=== PATIENT | female | born 1950 | race Caucasian/White ===

== ENCOUNTER 2021-10-08 03:52 | Inpatient (IN) ==
[2021-10-08 04:46] LABS: Hematocrit 38 % (35-47); Hemoglobin 12.4 g/dL (12.0-16.0); Mean Corpuscular HGB Conc 33 g/dL (31-36); Mean Corpuscular Hemoglobin 31 pg (27-31); Mean Corpuscular Volume 93 fL (80-97); Platelet Count 608 10^3/uL (150-450); Red Blood Count 4.05 10^6 /uL (3.70-4.87); Red Cell Distribution Width 15 % (10-15); White Blood Count 25.3 10^3/uL (3.5-10.8)
[2021-10-08] MEDS ORDERED: Cefepime 2 GM in Dextrose 2 GM/50 ML BAG IV ONE (04:53)
[2021-10-08] MEDS ORDERED: Vancomycin 1,250 MG in NS 0.9% 250 ml 250 ML IVPB ONE (04:53)
[2021-10-08 05:06] LABS: ALT 93 U/L (7-52); AST 59 U/L (13-39); Activated Partial Thrombo Time 29.7 seconds (26.0-38.0); Albumin 2.9 g/dL (3.2-5.2); Albumin/Globulin Ratio 0.8 (1-3); Alkaline Phosphatase 137 U/L (35-149); Anion Gap 8 mmol/L (2-11); Blood Urea Nitrogen 14 mg/dL (6-24); CO2 Carbon Dioxide 32 mmol/L (22-32); Calcium 8.7 mg/dL (8.6-10.3); Chloride 95 mmol/L (101-111); Creatine Kinase 47 U/L (10-223); Globulin 3.8 g/dL (2-4); Glucose 201 mg/dL (70-100); INR 1.49 (0.86-1.15); Potassium 4.1 mmol/L (3.5-5.0); Sodium 135 mmol/L (135-145); Total Protein 6.7 g/dL (6.4-8.9); eGFR CKD-EPI 84.8 (>60)
[2021-10-08 05:10] LABS: Troponin I 0.08 ng/mL (<0.03)
[2021-10-08 05:27] LABS: ABS Basophils 0.1 10^3/ul (0-0.2); ABS Eosinophils 0.1 10^3/ul (0-0.6); ABS Lymphocytes 1.2 10^3/ul (1.0-4.8); ABS Monocytes 1.5 10^3/ul (0-0.8); ABS Neutrophils 22.4 10^3/ul (1.5-7.7); Eosinophil % 0.3 %; Lymphocyte % 4.6 %
[2021-10-08 05:30] LABS: TSH Ultra Thyroid Stim Horm 1.29 mcIU/mL (0.34-5.60)
[2021-10-08 05:47] LABS: PCO2 Arterial 69 mmHg (35-45); PO2 Arterial 75 mmHg (80-100)
[2021-10-08] MEDS ORDERED: AZTREONAM 2 GM x ONCE IVPB ONE (06:00)
[2021-10-08 06:11] LABS: Urine Appearance Cloudy; Urine Bilirubin Negative (Negative); Urine Blood Negative (Negative); Urine Color Amber; Urine Glucose Negative (Negative); Urine Ketones Negative (Negative); Urine Nitrite Negative (Negative); Urine Protein 2+(100 mg/dL) (Negative); Urine Specific Gravity 1.025 (1.002-1.030); Urine Urobilinogen Positive (Negative)
[2021-10-08 06:18] LABS: Urine Bacteria 1+ (Absent); Urine Red Blood Cell 2+(6-10/hpf) (Absent); Urine Squamous Epithelial Cell Present (Absent); Urine White Blood Cell Trace(0-5/hpf) (Absent)
[2021-10-08] MEDS ORDERED: Furosemide 40 mg/4 ml IV VIAL IV SLOW PU ONE (07:12)
[2021-10-08] MEDS ORDERED: methylPREDNISolone 125 mg 2 ML VIAL IV ONE (07:28)
[2021-10-08] MEDS ORDERED: Albuterol HFA INHALER 8 gm MDI INH PRN (07:28)
[2021-10-08 07:45] LABS: PCO2 Arterial 64 mmHg (35-45); PO2 Arterial 76 mmHg (80-100)
[2021-10-08 07:58] LABS: Troponin I 0.09 ng/mL (<0.03)
[2021-10-08] MEDS ORDERED: methylPREDNISolone SOD 40 mg/ml 1 ml VIAL IV SCH (08:00)
[2021-10-08] MEDS: Pantoprazole VIAL 40 MG VIAL IV SCH (08:08)
[2021-10-08] MEDS ORDERED: Remdesivir 100 mg Vial 200 MG in NS 0.9% 250 ml 210 ML IV ONE (09:00)
[2021-10-08] MEDS: Azithromycin 500 mg/250 ml NS 500 MG/250 ML BAG IVPB SCH (09:45)
[2021-10-08 10:25] LABS: Troponin I 0.07 ng/mL (<0.03)
[2021-10-08 10:27] LABS: INR 1.48 (0.86-1.15)
[2021-10-08] MEDS: methylPREDNISolone SOD 40 mg/ml 1 ml VIAL IV SCH ×2 (12:30→20:20)
[2021-10-08] MEDS ORDERED: Iodixanol (CONTRAST) 320 MG/ML 100 ML SDV IV ONE (13:19)
[2021-10-08] MEDS ORDERED: Heparin 5000 UNITS/ML 1 mL VIAL SUBCUT SCH (14:00)
[2021-10-08] MEDS: Aztreonam 2 GM in NS 0.9% 100 ml BAG 100 ML IV SCH (15:34)
[2021-10-08] MEDS: Mometasone/Formoter 200/5 MDI INH SCH (19:34)
[2021-10-09] MEDS: Aztreonam 2 GM in NS 0.9% 100 ml BAG 100 ML IV SCH ×4 (00:29→23:45)
[2021-10-09] MEDS: methylPREDNISolone SOD 40 mg/ml 1 ml VIAL IV SCH ×3 (04:07→21:46)
[2021-10-09 04:22] LABS: Hematocrit 38 % (35-47); Hemoglobin 12.2 g/dL (12.0-16.0); Mean Corpuscular HGB Conc 32 g/dL (31-36); Mean Corpuscular Hemoglobin 30 pg (27-31); Mean Corpuscular Volume 94 fL (80-97); Platelet Count 653 10^3/uL (150-450); Red Blood Count 4.02 10^6 /uL (3.70-4.87); Red Cell Distribution Width 15 % (10-15); White Blood Count 20.3 10^3/uL (3.5-10.8)
[2021-10-09 04:33] LABS: ABS Lymphocytes 0.9 10^3/ul (1.0-4.8); ABS Monocytes 0.8 10^3/ul (0-0.8); ABS Neutrophils 18.6 10^3/ul (1.5-7.7); Lymphocyte % 4.5 %
[2021-10-09 04:35] LABS: INR 1.3 (0.86-1.15)
[2021-10-09 04:42] LABS: Albumin 2.9 g/dL (3.2-5.2); Albumin/Globulin Ratio 0.7 (1-3); Calcium 8.8 mg/dL (8.6-10.3); Globulin 3.9 g/dL (2-4); Potassium 4.7 mmol/L (3.5-5.0); Total Bilirubin 0.4 mg/dL (0.2-1.0); Total Protein 6.8 g/dL (6.4-8.9); eGFR CKD-EPI 80.9 (>60)
[2021-10-09 06:01] LABS: PO2 Arterial 119 mmHg (80-100)
[2021-10-09 06:09] LABS: PCO2 Arterial 93 mmHg (35-45)
[2021-10-09] MEDS: Mometasone/Formoter 200/5 MDI INH SCH ×2 (07:45→19:43)
[2021-10-09] MEDS: Pantoprazole VIAL 40 MG VIAL IV SCH (10:41)
[2021-10-09] MEDS: Azithromycin 500 mg/250 ml NS 500 MG/250 ML BAG IVPB SCH (10:52)
[2021-10-09 11:01] LABS: PCO2 Arterial 70 mmHg (35-45); PO2 Arterial 65 mmHg (80-100)
[2021-10-09] MEDS: Remdesivir 100 mg Vial 100 MG in NS 0.9% 250 ml 230 ML IV SCH (11:21)
[2021-10-09] MEDS: guaiFENesin/CODIENE 100mg/10mg 5 ML UDC PO PRN (13:12)
[2021-10-09] MEDS: Enoxaparin 40 MG/0.4 ML SYR SUBCUT SCH (16:15)
[2021-10-10] MEDS: guaiFENesin/CODIENE 100mg/10mg 5 ML UDC PO PRN ×3 (01:40→17:47)
[2021-10-10] MEDS ORDERED: Morphine 2 MG/ML SYRINGE IV PRN (01:55)
[2021-10-10] MEDS ORDERED: Furosemide 20 mg/2 ml IV VIAL IV ONE (01:57)
[2021-10-10] MEDS ORDERED: Furosemide 20 mg/2 ml IV VIAL ONE (02:10)
[2021-10-10 02:31] LABS: Urine Appearance Turbid; Urine Bilirubin Negative (Negative); Urine Blood 2+ (Negative); Urine Color Amber; Urine Glucose 3+(>=500 mg/dL) (Negative); Urine Ketones Negative (Negative); Urine Nitrite Negative (Negative); Urine Protein 1+(30 mg/dL) (Negative); Urine Specific Gravity 1.026 (1.002-1.030); Urine Urobilinogen Negative (Negative)
[2021-10-10 02:45] LABS: Urine Bacteria Absent (Absent); Urine Red Blood Cell 2+(6-10/hpf) (Absent); Urine White Blood Cell Trace(0-5/hpf) (Absent)
[2021-10-10] MEDS: methylPREDNISolone SOD 40 mg/ml 1 ml VIAL IV SCH ×3 (02:50→20:06)
[2021-10-10 05:32] LABS: Hematocrit 35 % (35-47); Hemoglobin 11.5 g/dL (12.0-16.0); Mean Corpuscular HGB Conc 32 g/dL (31-36); Mean Corpuscular Hemoglobin 31 pg (27-31); Mean Corpuscular Volume 95 fL (80-97); Mean Platelet Volume 8.2 fL (7.4-10.4); Platelet Count 607 10^3/uL (150-450); Red Blood Count 3.72 10^6 /uL (3.70-4.87); Red Cell Distribution Width 15 % (10-15)
[2021-10-10 05:36] LABS: ABS Basophils 0.1 10^3/ul (0-0.2); ABS Lymphocytes 0.5 10^3/ul (1.0-4.8); ABS Monocytes 0.5 10^3/ul (0-0.8); ABS Neutrophils 13.9 10^3/ul (1.5-7.7); INR 1.24 (0.86-1.15); Lymphocyte % 3.5 %
[2021-10-10 06:05] LABS: Blood Urea Nitrogen 25 mg/dL (6-24); CO2 Carbon Dioxide 34 mmol/L (22-32); Calcium 8.2 mg/dL (8.6-10.3); Chloride 94 mmol/L (101-111); Glucose 396 mg/dL (70-100); Sodium 134 mmol/L (135-145); eGFR CKD-EPI 80.9 (>60)
[2021-10-10 06:32] LABS: Anion Gap 6 mmol/L (2-11)
[2021-10-10] MEDS: Azithromycin 500 mg/250 ml NS 500 MG/250 ML BAG IVPB SCH (08:18)
[2021-10-10] MEDS: Aztreonam 2 GM in NS 0.9% 100 ml BAG 100 ML IV SCH ×3 (08:20→23:28)
[2021-10-10] MEDS: Pantoprazole VIAL 40 MG VIAL IV SCH (08:40)
[2021-10-10] MEDS: Mometasone/Formoter 200/5 MDI INH SCH ×2 (08:51→19:35)
[2021-10-10] MEDS: Remdesivir 100 mg Vial 100 MG in NS 0.9% 250 ml 230 ML IV SCH (11:27)
[2021-10-10] MEDS ORDERED: Dextrose 50% Syringe 50 ml 25 GM/50 ML SYRINGE IV PUSH PRN (12:50)
[2021-10-10] MEDS: Enoxaparin 40 MG/0.4 ML SYR SUBCUT SCH (16:37)
[2021-10-11] MEDS: guaiFENesin/CODIENE 100mg/10mg 5 ML UDC PO PRN (00:28)
[2021-10-11] MEDS: methylPREDNISolone SOD 40 mg/ml 1 ml VIAL IV SCH ×3 (02:38→20:34)
[2021-10-11 05:27] LABS: INR 1.27 (0.86-1.15)
[2021-10-11] MEDS: Azithromycin 500 mg/250 ml NS 500 MG/250 ML BAG IVPB SCH (07:46)
[2021-10-11] MEDS: Pantoprazole VIAL 40 MG VIAL IV SCH (09:11)
[2021-10-11] MEDS: Aztreonam 2 GM in NS 0.9% 100 ml BAG 100 ML IV SCH ×3 (09:30→23:42)
[2021-10-11] MEDS: Remdesivir 100 mg Vial 100 MG in NS 0.9% 250 ml 230 ML IV SCH (10:21)
[2021-10-11 10:50] LABS: ABS Lymphocytes 0.8 10^3/ul (1.0-4.8); ABS Monocytes 0.4 10^3/ul (0-0.8); ABS Neutrophils 14.8 10^3/ul (1.5-7.7); Hematocrit 39 % (35-47); Hemoglobin 12.5 g/dL (12.0-16.0); Lymphocyte % 4.8 %; Mean Corpuscular HGB Conc 32 g/dL (31-36); Mean Corpuscular Hemoglobin 31 pg (27-31); Mean Corpuscular Volume 94 fL (80-97); Mean Platelet Volume 7.7 fL (7.4-10.4); Platelet Count 692 10^3/uL (150-450); Red Blood Count 4.09 10^6 /uL (3.70-4.87); Red Cell Distribution Width 15 % (10-15)
[2021-10-11 11:14] LABS: Blood Urea Nitrogen 27 mg/dL (6-24); CO2 Carbon Dioxide 35 mmol/L (22-32); Calcium 8.5 mg/dL (8.6-10.3); Chloride 96 mmol/L (101-111); Glucose 303 mg/dL (70-100); Sodium 137 mmol/L (135-145); eGFR CKD-EPI 94.6 (>60)
[2021-10-11 11:23] LABS: Anion Gap 6 mmol/L (2-11)
[2021-10-11] MEDS: Mometasone/Formoter 200/5 MDI INH SCH ×2 (11:30→20:06)
[2021-10-11] MEDS: Enoxaparin 40 MG/0.4 ML SYR SUBCUT SCH (16:44)
[2021-10-12] MEDS: guaiFENesin/CODIENE 100mg/10mg 5 ML UDC PO PRN ×3 (01:17→23:25)
[2021-10-12] MEDS: methylPREDNISolone 125 mg 2 ML VIAL IV SCH ×3 (05:03→21:59)
[2021-10-12 06:43] LABS: ABS Lymphocytes 1.2 10^3/ul (1.0-4.8); ABS Monocytes 0.6 10^3/ul (0-0.8); ABS Neutrophils 14.7 10^3/ul (1.5-7.7); Hematocrit 39 % (35-47); Hemoglobin 12.9 g/dL (12.0-16.0); Lymphocyte % 7.1 %; Mean Corpuscular HGB Conc 33 g/dL (31-36); Mean Corpuscular Hemoglobin 31 pg (27-31); Mean Corpuscular Volume 94 fL (80-97); Mean Platelet Volume 7.6 fL (7.4-10.4); Platelet Count 861 10^3/uL (150-450); Red Blood Count 4.18 10^6 /uL (3.70-4.87); Red Cell Distribution Width 15 % (10-15); White Blood Count 16.5 10^3/uL (3.5-10.8)
[2021-10-12 06:48] LABS: INR 1.2 (0.86-1.15)
[2021-10-12 07:04] LABS: Calcium 8.7 mg/dL (8.6-10.3); Potassium 4.6 mmol/L (3.5-5.0); eGFR CKD-EPI 95.2 (>60)
[2021-10-12] MEDS: Pantoprazole VIAL 40 MG VIAL IV SCH (08:10)
[2021-10-12] MEDS: Aztreonam 2 GM in NS 0.9% 100 ml BAG 100 ML IV SCH ×3 (08:11→23:25)
[2021-10-12] MEDS: Mometasone/Formoter 200/5 MDI INH SCH ×2 (08:11→20:01)
[2021-10-12] MEDS: Remdesivir 100 mg Vial 100 MG in NS 0.9% 250 ml 230 ML IV SCH (11:01)
[2021-10-12] MEDS: Azithromycin 500 mg/250 ml NS 500 MG/250 ML BAG IVPB SCH (12:22)
[2021-10-12] MEDS: Enoxaparin 40 MG/0.4 ML SYR SUBCUT SCH (17:20)
[2021-10-12] MEDS ORDERED: Insulin GLARGINE 100 un/ml 10 ml VIAL SUBCUT SCH (22:00)
[2021-10-13 05:31] LABS: Hematocrit 40 % (35-47); Hemoglobin 13.1 g/dL (12.0-16.0); Mean Corpuscular HGB Conc 33 g/dL (31-36); Mean Corpuscular Hemoglobin 30 pg (27-31); Mean Corpuscular Volume 93 fL (80-97); Mean Platelet Volume 7.2 fL (7.4-10.4); Platelet Count 828 10^3/uL (150-450); Red Blood Count 4.32 10^6 /uL (3.70-4.87); Red Cell Distribution Width 15 % (10-15); White Blood Count 16.9 10^3/uL (3.5-10.8)
[2021-10-13 05:32] LABS: Venous Bicarbonate HCO3 35.4 mmol/L (24-28)
[2021-10-13] MEDS: methylPREDNISolone 125 mg 2 ML VIAL IV SCH ×2 (05:42→12:38)
[2021-10-13 05:43] LABS: INR 1.15 (0.86-1.15)
[2021-10-13 05:48] LABS: ABS Lymphocytes 0.7 10^3/ul (1.0-4.8); ABS Monocytes 0.5 10^3/ul (0-0.8); ABS Neutrophils 15.6 10^3/ul (1.5-7.7); Eosinophil % 0.1 %; Lymphocyte % 4.3 %
[2021-10-13 05:49] LABS: Calcium 8.4 mg/dL (8.6-10.3); Magnesium 2.3 mg/dL (1.9-2.7); Phosphorus 4.2 mg/dL (2.5-5.0); Potassium 4.5 mmol/L (3.5-5.0); eGFR CKD-EPI 95.6 (>60)
[2021-10-13] MEDS: Mometasone/Formoter 200/5 MDI INH SCH ×2 (07:40→19:41)
[2021-10-13] MEDS: guaiFENesin/CODIENE 100mg/10mg 5 ML UDC PO PRN (08:25)
[2021-10-13] MEDS: Azithromycin 500 mg/250 ml NS 500 MG/250 ML BAG IVPB SCH (08:27)
[2021-10-13] MEDS: Pantoprazole VIAL 40 MG VIAL IV SCH (08:28)
[2021-10-13] MEDS: Aztreonam 2 GM in NS 0.9% 100 ml BAG 100 ML IV SCH ×2 (10:16→16:57)
[2021-10-13] MEDS: Enoxaparin 40 MG/0.4 ML SYR SUBCUT SCH (16:58)
[2021-10-13] MEDS ORDERED: Insulin GLARGINE 100 un/ml 10 ml VIAL SUBCUT SCH (21:00)
[2021-10-13] MEDS: methylPREDNISolone SOD 40 mg/ml 1 ml VIAL IV SCH (21:42)
[2021-10-14] MEDS: Aztreonam 2 GM in NS 0.9% 100 ml BAG 100 ML IV SCH ×2 (00:23→09:30)
[2021-10-14 06:47] LABS: ABS Lymphocytes 0.7 10^3/ul (1.0-4.8); ABS Monocytes 0.5 10^3/ul (0-0.8); ABS Neutrophils 15.4 10^3/ul (1.5-7.7); Hematocrit 40 % (35-47); Hemoglobin 13.2 g/dL (12.0-16.0); Lymphocyte % 4.4 %; Mean Corpuscular HGB Conc 33 g/dL (31-36); Mean Corpuscular Hemoglobin 31 pg (27-31); Mean Corpuscular Volume 94 fL (80-97); Mean Platelet Volume 7.3 fL (7.4-10.4); Platelet Count 817 10^3/uL (150-450); Red Blood Count 4.26 10^6 /uL (3.70-4.87); Red Cell Distribution Width 15 % (10-15); White Blood Count 16.6 10^3/uL (3.5-10.8)
[2021-10-14 06:58] LABS: Calcium 8.5 mg/dL (8.6-10.3); Potassium 4.5 mmol/L (3.5-5.0); eGFR CKD-EPI 94.9 (>60)
[2021-10-14] MEDS: Mometasone/Formoter 200/5 MDI INH SCH (07:55)
[2021-10-14] MEDS: Pantoprazole VIAL 40 MG VIAL IV SCH (09:29)
[2021-10-14] MEDS: methylPREDNISolone SOD 40 mg/ml 1 ml VIAL IV SCH (09:29)
[2021-10-14 13:14] VITALS: BP 149/62
[2021-10-15] MEDS ORDERED: methylPREDNISolone TAB* 8 MG - DAY 1 0800,2100 PO SCH (08:00)
[2021-10-15] MEDS ORDERED: methylPREDNISolone TAB* 4 MG - DAY 1 1300,1800 PO SCH (13:00)
[2021-10-16] MEDS ORDERED: methylPREDNISolone TAB* 4 MG - DAY 2 0700,1300,1800 PO SCH (07:00)
[2021-10-16] MEDS ORDERED: methylPREDNISolone TAB* 8 MG - DAY 2 2100 PO SCH (21:00)
[2021-10-17] MEDS ORDERED: methylPREDNISolone TAB* 4 MG - DAY 3 0700,1300,1800,2100 PO SCH (07:00)
[2021-10-18] MEDS ORDERED: methylPREDNISolone TAB* 4 MG - DAY 4 0700,1300,2100 PO SCH (07:00)
[2021-10-19] MEDS ORDERED: methylPREDNISolone TAB* 4 MG - DAY 5 0700,2100 PO SCH (07:00)
[2021-10-20] MEDS ORDERED: methylPREDNISolone TAB* 4 MG - DAY 6 0700 PO SCH (07:00)
== END 2021-10-14 14:45 | disposition home or self-care (01) | DRG 177 ==
LOC: ED 03:52 → EDHOLD 07:31 → SUATTDRO 07:31 → ICU 08:56 → MED 10-11 12:15
PROVIDERS: ADMIT Internal Medicine; ATTEND Hospitalist